=== PATIENT | female | born 1960 | race Caucasian/White ===

== ENCOUNTER → 2022-12-15 | Day surgery (SDC) | payer OTHER ==
[~2022-12-15] VITALS: Ht 162.5 cm; Wt 74.8 kg
[~2022-12-15] MED LIST: ALBUTEROL0.09 MG/A2 IH; ZITHROMAX Z PA250 MG PO; ZOCOR20 MG PO
[2022-12-15 13:43] VITALS: BP 136/75
[2022-12-15 14:31] VITALS: BP 119/62
[2022-12-15 14:46] VITALS: BP 125/58
[2022-12-15 14:56] VITALS: BP 122/49
== END ==
LOC: SDC 12-13 12:30
PROVIDERS: ATTEND Ophthalmology
DX: H25.11 Age-related nuclear cataract, right eye (principal); E78.00 Pure hypercholesterolemia, unspecified